=== PATIENT | male | born 1965 | race Caucasian/White ===

== ENCOUNTER 2020-03-01 14:58 | Emergency (ER) | payer MEDICARE, SELFPAY ==
[2020-03-01 15:10] VITALS: BP 144/87; PULSE 102; RESP 18; TEMP 36.1; O2SAT 96; BMI 30.4
== END 2020-03-01 17:37 | disposition left against medical advice (07) ==
LOC: ER 15:22
PROVIDERS: Emergency Provider Physician Assistant; Family Provider Family Medicine
DX: Z53.21 Procedure and treatment not carried out due to patient leaving prior to being seen by health care provider (principal)
CPT/HCPCS: 99281